=== PATIENT | male | born 1965 | race Hispanic/Latino ===

== ENCOUNTER 2025-01-23 06:30 | Emergency (ER) | payer OTHER ==
[~2025-01-23] VITALS: Ht 167.6 cm; Wt 83.9 kg
--- NOTE | 2025-01-23 07:32 | NUR ---
REPORT GIVEN TO SALIMA RN AT THIS TIME
[2025-01-23 07:46] LABS: BASOPHILS # (AUTO) 0.03 K/uL (0.00-0.20); BASOPHILS % (AUTO) 0.4 % (0.0-5.0); EOSINOPHILS # (AUTO) 0.13 K/uL (0.00-0.70); EOSINOPHILS % (AUTO) 1.6 % (0.0-8.0); IMMATURE GRANULOCYTE ABSOLUTE 0.03 K/uL (0-1); LYMPHOCYTES # (AUTO) 1.6 K/uL (1.0-4.8); LYMPHOCYTES % (AUTO) 20.8 % (21.0-51.0); MEAN CORPUSCULAR HEMOGLOBIN 32.5 pg (27.0-33.0); MEAN CORPUSCULAR HGB CONC 34.8 g/dL (32.0-36.0); MEAN CORPUSCULAR VOLUME 93.4 fL (79-99); MONOCYTES # (AUTO) 0.6 K/uL (0.1-1.0); MONOCYTES % (AUTO) 7.6 % (3.0-13.0); NEUTROPHILS # (AUTO) 5.5 K/uL (1.8-7.7); NEUTROPHILS % (AUTO) 69.2 % (40.0-77.0); PLATELET COUNT (AUTO) 199 K/uL (130-400); RED BLOOD CELL COUNT(AUTO) 4.71 MIL/uL (4.50-6.20); RED CELL DISTRIBUTION WIDTH 12.7 % (11.0-15.5); WHITE BLOOD COUNT (AUTO) 7.9 K/uL (4.8-10.8)
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
[2025-01-23 07:55] LABS: CREATININE 0.6 mg/dL (0.5-1.3); POTASSIUM 3.9 mmol/L (3.5-5.1)
[2025-01-23] MEDS ORDERED: IOHEXOL 350 MG/ML 100ML INFUS..BTL IV ONE (08:18)
--- NOTE | 2025-01-23 08:38 | HMCIMG ---
PORTABLE CHEST RADIOGRAPH INDICATION: diminished left lung quiros COMPARISON: None FINDINGS: Heart size is normal. The pulmonary vascularity and saulo appear normal. Linear opacities left lung base without consolidation. Left hemidiaphragm is elevated. No significant pleural effusion noted. No pneumothorax detected. IMPRESSION: Minimal left lung base atelectasis.
--- NOTE | 2025-01-23 09:47 | HMCIMG ---
Exam Type: CT cervical spine without contrast Clinical Information: fall Comparison: None Technique: Spiral axial images were performed from the base of the skull down to the thoracic vertebral bodies. Both sagittal and coronal reconstructions were performed. CT Dose Index (CTDI): 12.85 mGy Dose Length Product (DLP): 282.6 total Findings: There are degenerative changes. Degenerative disc disease is noted at multiple levels. There is reversal of normal cervical lordosis consistent with degeneration and spasm. There are no fractures. There is facet hypertrophy at multiple levels. IMPRESSION: Degenerative changes as noted. No acute pathology. No fractures seen. This study was performed using dose reduction techniques to include automated exposure control and/or adjustment of the mA and/or kV according to patient size.
--- NOTE | 2025-01-23 09:48 | HMCIMG ---
Exam Type: CT HEAD/BRAIN W/O CONTRAST Clinical Information: fall Comparison: None CT Dose Index (CTDI): 57.33 mGy Dose Length Product (DLP): 956.79 total mGy-cm Findings: The examination is unremarkable. Camarena-white matter junction is preserved. No intra or extra axial lesions or fluid collections are seen. Specifically, camarena and white matter are normal in signal characteristics with normal caliber of ventricles and periventricular cisterns with no evidence of intra or or extra-axial hemorrhage, lacunar infarct, or major territorial infarct, mass, or other abnormality. There are no infarcts. There are no hemorrhages. Periventricular white matter locations are preserved. The orbital contents and structures of the posterior fossa are intact. Impression: Normal CT of the head. This study was performed using dose reduction techniques to include automated exposure control and/or adjustment of the mA and/or kV according to patient size.
[2025-01-23] MEDS: ondanSETRON 4MG INJ IVP ONE (09:51)
[2025-01-23] MEDS: morPHINE 2 MG SYG IVP ONE (09:51)
--- NOTE | 2025-01-23 09:58 | HMCIMG ---
Exam Type: CT CHEST/ABD/PELV W/CONRAST Clinical Information: r/o pneumothorax left side Comparison: None CT Dose Index (CTDI): 26.51 mGy Dose Length Product (DLP): 1987.6 total mGy PROTOCOL: Examination is done at 2.5 millimeter volumetric acquisition after contrast administration with Isovue 370, 100 cc IV, without complications. Photography is done at 5 millimeter thick intervals for the thorax. FINDINGS: The thyroid gland is unremarkable. There is no evidence of pulmonary embolism. The airway is intact. The trachea and major bronchi are unremarkable. The chest exam shows no pulmonary nodules or masses. No significant pulmonary parenchymal abnormalities are noted. No pulmonary infiltrates or mass lesions are seen. Left basal subsegmental atelectasis seen. No pleural effusions are identified. The exam of the saulo and mediastinum is unremarkable. No evidence of hilar enlargement is seen. The aorta shows no aneurysmal dilatation or significant atheromatous calcification. No significant brachiocephalic vascular abnormalities are seen. The heart is unremarkable. It is not enlarged. No significant coronary arterial calcifications are seen. There is no pericardial effusion. The rib cage appears unremarkable. The soft tissues of the chest wall are unremarkable. The dorsal spine shows no significant abnormalities. No evidence of nephro or ureterolithiasis is found. No hydronephrosis or ureteral dilatation is seen. The stomach is unremarkable. It shows no wall thickening. No gross ulceration is seen. It is not overly distended. There are no surrounding inflammatory changes. No wall lesions are identified to suggest cancer. The spleen is unremarkable. It is not enlarged. The pancreas shows normal anatomy. It is not fatty replaced. It shows no lesions. The pancreatic duct is not dilated. The gallbladder is unremarkable. It shows no cholelithiasis. The gallbladder wall is normal in thickness. There is no pericholecystic fluid. The is no acute or chronic inflammation noted. The adrenal glands are unremarkable. There is no enlargement. No lesions are noted. The liver is unremarkable. It shows no focal masses. The appendix is unremarkable. It shows no evidence of inflammation. No appendicolith is seen. The small bowel is unremarkable. There is no evidence of dilatation to suggest obstruction. No evidence of adynamic ileus is seen. There is no small bowel wall thickening to suggest enteritis. The colon is unremarkable. The urinary bladder is unremarkable. There is no wall thickening to suggest tumor or inflammation. There are no intraluminal calculi. There are no diverticula. There is no evidence of chronic bladder outlet obstruction. There is no evidence of urinary bladder distention to suggest urinary retention. The other pelvic structures are unremarkable. The bony and vascular structures are unremarkable for the patient's age. Impression: No pneumothorax. Left basal atelectasis. Otherwise clear lungs. Normal abdomen and pelvis exam. This study was performed using dose reduction techniques to include automated exposure control and/or adjustment of the mA and/or kV according to patient size.
[2025-01-23] MEDS: ketOROlac 15MG/ML VIAL (15MG/ML) IV ONE (10:51)
[2025-01-23 11:28] VITALS: BP 129/69; PULSE 62; RESP 22; TEMP 97.7; O2SAT 95
--- NOTE | 2025-01-23 11:30 | NUR ---
DC PATIENT WAS DC'D BY LAW VARGAS I DC'D PATIENTS IV WITH CATH STILL IN PLACE AND APPLIED 2X2 GAUZE WITH COBAN, I EXPLAINED TO PATIENT TO FOLLOW UP WITH PCP AND PROVIDED INFO REGARDING DIAGNOSIS, PATIENT MEDICALLY CLEARED, PENDING TRANSPORT PER [facility] AT BEDSIDE
--- NOTE | 2025-01-23 12:30 | NUR ---
DELAY IN D/C TO HOME D/T PENDING TRANSPORT TO ARRIVED TO [facility] AND [facility] W/HIM.
== END 2025-01-23 16:28 | disposition home or self-care (01) ==
LOC: EDBD 06:30 → EDH 06:30 → EEVIPCON 06:30 → EDH 16:28
DX: S20.212A Contusion of left front wall of thorax, initial encounter (principal); J98.6 Disorders of diaphragm; I10 Essential (primary) hypertension; W06.XXXA Fall from bed, initial encounter; Y93.89 Activity, other specified; Y92.89 Other specified places as the place of occurrence of the external cause; Y99.8 Other external cause status
CPT/HCPCS: 99285; 70450; 96374; 96375; 71045; 84484; 80048; 85025; 36415; 72125; 71260; 74177; J1885; J2270; J2405; Q9967